=== PATIENT | female | born 1965 | race Two or more races ===

== ENCOUNTER 2024-09-25 09:58 | Emergency (ER) | payer OTHER ==
[~2024-09-25] VITALS: Ht 167.6 cm; Wt 102.1 kg
[2024-09-25] MEDS ORDERED: KETOROLAC TROMETHAMINE 60 MG VIAL IM STA (10:11)
[2024-09-25] MEDS ORDERED: DEXAMETHASONE SODIUM PHOSPHATE 4 MG/ML VIAL IM STA (10:12)
[2024-09-25] MEDS ORDERED: TRAMADOL HCL 50 MG TABLET PO STA (10:12)
[2024-09-25] MEDS ORDERED: KETO10TA2 PO (10:45)
[2024-09-25] MEDS ORDERED: MEDROLPACK PO (10:45)
[2024-09-25 10:48] VITALS: BP 120/70; O2SAT 98
== END 2024-09-25 10:49 | disposition home or self-care (01) ==
LOC: ER 10:39
DX: M25.562 Pain in left knee (principal)

== ENCOUNTER 2025-01-06 07:30 | Inpatient (IN) | payer OTHER ==
[~2025-01-06] VITALS: Ht 170.2 cm; Wt 102.1 kg
[2025-01-06 07:24] LABS: URINE APPEARANCE Clear; URINE BILIRRUBIN Negative (NEGATIVE); URINE BLOOD Negative; URINE COLOR Yellow; URINE GLUCOSE Negative (NEGATIVE); URINE KETONE Negative (NEGATIVE); URINE LEUKOCYTE Trace; URINE NITRATE Negative; URINE PROTEIN Negative (NEGATIVE); URINE UROBILINOGEN 1.0 E.U./dl
[2025-01-06 07:26] LABS: BASO % 1.1 % (0.1-1.2); EOS # 0.10 (0.04-0.54); EOS % 1.6 % (0.7-7.0); LYMPH # 1.39 (1.18-3.74); LYMPH % 22.8 % (19.3-53.1); MEAN PLATELET VOLUME 10.50 fl (9.4-12.4); MONO # 0.46 (0.24-0.82); MONO % 7.5 % (4.7-12.5); NEUT # 4.07 (1.56-6.13); NEUT % 66.8 % (34.0-71.1); RED CELL DISTRIBUTION WIDTH 13.2 % (11.6-14.4)
[2025-01-06 07:28] LABS: URINE BACTERIA 645.5 uL (0.0-1933); URINE EPITHELIAL CELLS 42.4 uL (0.0-38.8); URINE WBC 24.6 uL (0.0-23.2)
[~2025-01-06 07:30] MED LIST: KETO10TA2 PO; MEDROLPACK PO
[2025-01-06 07:42] LABS: COVID-19 AG NEGATIVE (NEGATIVE)
[2025-01-06 07:42] LABS: URINE CAST 0.00 uL (0.0-1.40); URINE RBC 1.7 uL (0.0-20.8)
[2025-01-06 07:44] LABS: INR < 0.93
[2025-01-06 08:02] LABS: CHOL HDL RATIO 4.0 (0-5.0); HDL 68.0 mg/dl (40-60); LDL 167.0 mg/dl (0-130); VLDL 35.0 (0-39)
[2025-01-06 08:05] LABS: ALT/SGPT 22.0 U/L (12-78); AST/SGOT 14.0 U/L (15-37); BILIRUBIN TOTAL 0.59 mg/dL (0.3-1.2); BUN CREA RATIO 37.0 (7.0-25.0); CREATININE SERUM 0.6 mg/dL (0.55-1.02); GFR 103.04; GLOBULINA 3.5 G/DL (2.4-3.5); GLUCOSE FASTING 111.0 mg/dL (65-100); OSMOLALITY SERUM 289.0 MOSM/KG (275-295)
[2025-01-06 09:09] VITALS: BP 160/100
[2025-01-13] MEDS ORDERED: CEFAZOLIN SODIUM 1,000 MG VIAL ONE ×2 (11:17→17:11)
[2025-01-13] MEDS ORDERED: TRANEXAMIC ACID 100MG/1ML (1000MG) AMPUL ONE (11:17)
[2025-01-13] MEDS ORDERED: LIDOCAINE HCL 1%/EPINEPHRINE 20ML VIAL IJ ONE (12:41)
[2025-01-13] MEDS ORDERED: KETOROLAC TROMETHAMINE 60 MG VIAL IM ONE (12:41)
[2025-01-13] MEDS ORDERED: VANCOMYCIN HCL 1,000 MG VIAL ONE (13:01)
[2025-01-13] MEDS ORDERED: SODIUM CHLORIDE 0.45 % 1,000 ML IV SCH (16:30)
[2025-01-13] MEDS ORDERED: ONDANSETRON HCL 2 MG/ML VIAL IV PRN (16:30)
[2025-01-13] MEDS ORDERED: MORPHINE SULFATE 4 MG/ML CARTRIDGE IV PRN (16:30)
[2025-01-13] MEDS ORDERED: OxyCODONE HCL 5 MG TABLET (ROXICODONE) PO PRN (16:30)
[2025-01-13] MEDS ORDERED: GABAPENTIN 300 MG CAPSULE PO SCH (17:00)
[2025-01-13] MEDS ORDERED: CEFAZOLIN SODIUM 1,000 MG VIAL IV SCH (17:00)
[2025-01-13] MEDS ORDERED: ACETAMINOPHEN 500 MG GEL..CAP PO SCH (18:00)
[2025-01-14] MEDS ORDERED: GABAPENTIN 300 MG CAPSULE PO ONE (01:04)
[2025-01-14] MEDS ORDERED: ACETAMINOPHEN 500 MG GEL..CAP PO ONE (01:04)
[2025-01-14] MEDS ORDERED: CEFAZOLIN SODIUM 1,000 MG VIAL ONE (01:04)
[2025-01-14 02:27] VITALS: BP 148/84
[2025-01-14 06:55] LABS: BASO % 0.9 % (0.1-1.2); EOS # 0.04 (0.04-0.54); EOS % 0.5 % (0.7-7.0); LYMPH # 0.98 (1.18-3.74); LYMPH % 12.6 % (19.3-53.1); MEAN PLATELET VOLUME 11.00 fl (9.4-12.4); MONO # 0.59 (0.24-0.82); MONO % 7.6 % (4.7-12.5); NEUT # 6.09 (1.56-6.13); NEUT % 78.1 % (34.0-71.1); RED CELL DISTRIBUTION WIDTH 13.0 % (11.6-14.4)
[2025-01-14] MEDS ORDERED: PERCOCET 5-3251 EACH PO (08:39)
[2025-01-14] MEDS ORDERED: DUI500 PO (08:39)
[2025-01-14] MEDS ORDERED: ELIQUIS2.5 MG PO (08:39)
[2025-01-14 08:56] VITALS: BP 108/68
[2025-01-14] MEDS ORDERED: APIXABAN 2.5 MG TABLET PO SCH (09:00)
[2025-01-14] MEDS ORDERED: SENNOSIDES 1 TAB TABLET PO SCH (09:00)
[2025-01-14 12:46] LABS: COVID-19 AG NEGATIVE (NEGATIVE)
[2025-01-14 13:10] LABS: ALT/SGPT 21.0 U/L (12-78); AST/SGOT 26.0 U/L (15-37); BILIRUBIN TOTAL 0.92 mg/dL (0.3-1.2); BUN CREA RATIO 12.0 (7.0-25.0); CREATININE SERUM 0.57 mg/dL (0.55-1.02); GFR 109.32; GLOBULINA 3.3 G/DL (2.4-3.5); GLUCOSE FASTING 125.0 mg/dL (65-100); OSMOLALITY SERUM 271.0 MOSM/KG (275-295)
[2025-01-14] MEDS ORDERED: Cyanocobalamin/Mecobalamin 1 TAB.SL SL NR (15:30)
[2025-01-14] MEDS ORDERED: SOD FERRIC GLUC COMPLX/SUCROSE 62.5 MG/5 ML AMPUL IV SCH (17:00)
[2025-01-14 17:41] VITALS: BP 131/73
[2025-01-15 00:48] VITALS: BP 129/83
[2025-01-15 06:50] LABS: BASO % 0.4 % (0.1-1.2); EOS # 0.11 (0.04-0.54); EOS % 1.3 % (0.7-7.0); LYMPH # 0.70 (1.18-3.74); LYMPH % 8.6 % (19.3-53.1); MEAN PLATELET VOLUME 10.50 fl (9.4-12.4); MONO # 0.56 (0.24-0.82); MONO % 6.8 % (4.7-12.5); NEUT # 6.75 (1.56-6.13); NEUT % 82.5 % (34.0-71.1); RED CELL DISTRIBUTION WIDTH 12.7 % (11.6-14.4)
[2025-01-15 08:54] VITALS: BP 119/73
[2025-01-15] MEDS ORDERED: IRON FUM,PS/FOLIC ACID/VITC/B3 1 CAP CAPSULE PO SCH (09:00)
[2025-01-15] MEDS ORDERED: Cyanocobalamin/Mecobalamin 1 TAB.SL SL SCH (09:00)
[2025-01-15 17:05] VITALS: BP 143/88
[2025-01-16 00:54] VITALS: BP 111/70
[2025-01-16 08:00] VITALS: BP 127/83
== END 2025-01-16 15:16 | disposition home or self-care (01) | DRG 470 ==
LOC: SURH 01-13 07:30 → OB/GYN 01-13 10:00 → O/R 01-13 10:00 → SURH 01-13 20:45 → OB/GYN 01-13 23:34
PROVIDERS: ADMIT Orthopaedic Surgery; ATTEND Orthopaedic Surgery
PROC: 0SRD0J9 Replacement of Left Knee Joint with Synthetic Substitute, Cemented, Open Approach (ICD-10-PCS; principal; 2025-01-13 20:45)
DX: M17.12 Unilateral primary osteoarthritis, left knee (principal); D62 Acute posthemorrhagic anemia; E66.01 Morbid (severe) obesity due to excess calories